=== PATIENT | female | born 2000 | race Caucasian/White ===

== ENCOUNTER 2023-09-19 19:41 | Observation (INO) | payer OTHER ==
--- NOTE | 2023-09-19 20:15 | ED ---
General Adult HPI - General Source: patient, family, RN notes reviewed Mode of arrival: ambulatory Limitations: no limitations <Michelle Ellsworth - Last Filed: 09/19/23 20:14> <Chris Swann - Last Filed: 09/20/23 01:28> - General Chief complaint: Neuro Symptoms/Deficit Stated complaint: Sent by Urgent Care Time Seen by Provider: 09/19/23 20:14 - History of Present Illness Initial comments: Quick note: 22-year-old female presented to the ER with a chief complaint of dizziness. She states and going on for approximately 1 week. She is seen by urgent care , 09-13-2023 and prescribed prednisone, meclizine and Zofran. She states since then dizziness has persisted. She describes her dizziness as a room spinning sensation. She denies any episodes of syncope. Denies any chest pain, shortness of breath. (Michelle Ellsworth) 22-year-old female presented to the ED with complaints of dizziness. States has been ongoing for the past week. Seen at urgent care and prescribed prednisone meclizine and Zofran. States initial relief of dizziness with meclizine however over the past few days she reports that she feels "off" and when she ambulates that she feels "wobbly". No fever or chills. No other complaints at this time. (hCris Swann) - Related Data Allergies Allergy/AdvReac Type Severity Reaction Status Date / Time amoxicillin Allergy Rash/Hives Verified 09/19/23 19:49 Review of Systems ROS Other: All systems not noted in ROS Statement are negative. <Michelle Ellsworth - Last Filed: 09/19/23 20:14> ROS Other: All systems not noted in ROS Statement are negative. <Chris Swann - Last Filed: 09/20/23 01:28> ROS Statement: Those systems with pertinent positive or pertinent negative responses have been documented in the HPI. Past Medical History Past Medical History: No Reported History History of Any Multi-Drug Resistant Organisms: None Reported Past Surgical History: No Surgical Hx Reported Past Psychological History: No Psychological Hx Reported Smoking Status: Never smoker Past Alcohol Use History: None Reported Past Drug Use History: None Reported <Michelle Ellsworth - Last Filed: 09/19/23 20:14> General Exam Limitations: no limitations <Michelle Ellsworth - Last Filed: 09/19/23 20:14> General appearance: alert, in no apparent distress Eye exam: Present: PERRL, EOMI Neck exam: Present: normal inspection Respiratory exam: Present: normal lung sounds bilaterally Cardiovascular Exam: Present: regular rate GI/Abdominal exam: Present: soft Extremities exam: Present: normal inspection Back exam: Present: normal inspection Neurological exam: Present: alert, oriented X3, CN II-XII intact (Rvymye-bi-qyxl, oktx-zo-[id number], rapid alternating movements intact.), abnormal gait, other (Rocking head [id number].) <Chris Swann - Last Filed: 09/20/23 01:28> - General Exam Comments Initial Comments: Visual Physical Exam Vital signs reviewed General: Well-appearing, nontoxic, no acute distress. Head: Normocephalic, atraumatic Eyes: PERRLA, EOMI ENT: Airway patent Chest: Nonlabored breathing Skin: No visual rash, normal skin tone Neuro: Alert and oriented 3 Musculoskeletal: No gross abnormalities (Michelle Ellsworth) Course Vital Signs 09/19/23 19:49 Temperature 98.5 F Pulse Rate 80 Respiratory 16 Rate Blood Pressure 164/92 O2 Sat by Pulse 98 Oximetry Medical Decision Making <Michelle Ellsworth - Last Filed: 09/19/23 20:14> - Lab Data Result diagrams: 09/19/23 21:00 09/19/23 21:00 <Chris Swann - Last Filed: 09/20/23 01:28> - Medical Decision Making I performed the quick note portion of this chart. Electronically signed by Michelle Ellsworth PA-C (Michelle Ellsworth) was pt. sent in by a medical professional or institution (MIKAEL Shultz, TIGER MACHINE OPERATOR, urgent care, hospital, or correction...) When possible be specific @ -No Did you speak to anyone other than the patient for history (EMS, parent, family, police, friend...)? What history was obtained from this source @ -No Did you review nursing and triage notes (agree or disagree)? Why? @ -I reviewed and agree with nursing and triage notes Were old charts reviewed (outside hosp., previous admission, EMS record, old EKG, old radiological studies, urgent care reports/EKG's, correction records)? Report findings @ -No old charts were reviewed Differential Diagnosis (chest pain, altered mental status, abdominal pain women, abdominal pain men, vaginal bleeding, weakness, fever, dyspnea, syncope, headache, dizziness, GI bleed, back pain, seizure, CVA, palpatations, mental health, musculoskeletal)? @ -Differential Altered Mental Status: Hypoglycemia, DKA, hypercapnia, ETOH, overdose, CO poisoning, trauma, myxedema coma, HTN encephalopathy, infection, encephalitis, psychosis, intercranial hemor rhage, hepatic encephalopathy, meningitis, CVA, this is not meant to be an all- inclusive list EKG interpreted by me (3pts min.). @ -EKG interpretation sinus rhythm [address]-T wave changes. X-rays interpreted by me (1pt min.). @ -None done CT interpreted by me (1pt min.). @ -CT brain and CT angio head and neck interpreted me which revealed no evidence of acute finding. U/S interpreted by me (1pt. min.). @ -None done What testing was considered but not performed or refused? (CT, X-rays, U/S, labs)? Why? @ -None What meds were considered but not given or refused? Why? @ -None Did you discuss the management of the patient with other professionals (professionals i.e. , PA, TIGER MACHINE OPERATOR, lab, RT, psych nurse, hospice social worker, fence maker, teacher, duty officer, outpatient case manager)? Give summary @ -Case discussed with Lucille, who accepts admission under [facility]. Was smoking cessation discussed for >3mins.? @ -No Was critical care preformed (if so, how long)? @ -No Were there social determinants of health that impacted care today? How? (Homelessness, low income, unemployed, alcoholism, drug addiction, transportation, low edu. Level, literacy, decrease access to med. care, nursing home, rehab)? @ -No Was there de-escalation of care discussed even if they declined (Discuss DNR or withdrawal of care, Hospice)? DNR status @ -No What co-morbidities impacted this encounter? (DM, HTN, Smoking, COPD, CAD, Canc er, CVA, ARF, Chemo, Hep., AIDS, mental health diagnosis, sleep apnea, morbid obesity)? @ -None Was patient admitted / discharged? Hospital course, mention meds given and route, prescriptions, significant lab abnormalities, going to OR and other pertinent info. @ -Admission 22-year-old female presenting to the ED with complaints of dizziness for the past week. Initially went to an urgent care and was provided prescriptions for steroids, meclizine, Zofran. Did note some improvement of dizziness with this however over the last 3 days and persistent feeling of being off balance with difficulties ambulating secondary to this. Also today notes onset of involuntary head movements. CT brain and CT angio head and neck were performed which revealed no evidence of acute finding. On examination patient is involuntarily rocking her head. Possible small amount of torsional nystagmus on cover/uncover test. Upon trying to ambulate the patient she has difficulties walking straight without assistance. Patient will be admitted to observation with consult to neurology. Undiagnosed new problem with uncertain prognosis? @ -No Drug Therapy requiring intensive monitoring for toxicity (Heparin, Nitro, Insulin, Cardizem)? @ -No Were any procedures done? @ -No Diagnosis/symptom? @ -Dizziness, unsteady gait Acute, or Chronic, or Acute on Chronic? @ -Acute Uncomplicated (without systemic symptoms) or Complicated (systemic symptoms)? @ -Complicated Side effects of treatment? @ -No Exacerbation, Progression, or Severe Exacerbation? @ -No Poses a threat to life or bodily function? How? (Chest pain, [place], [place], pneumonia, PE, COPD, DKA, ARF, appy, cholecystitis, CVA, Diverticulitis, Homicidal, Suicidal, threat to staff... and all critical care pts) @ -Unlikely at this time (Chris Swann) - Lab Data Lab Results 09/19/23 09/19/23 Range/Units 21:00 21:00 WBC 16.5 H (3.8-10.6) k/uL RBC 5.36 (3.80-5.40) m/uL Hgb 15.4 (11.4-16.0) gm/dL Hct 48.7 H (34.0-46.0) % MCV 90.8 (80.0-100.0) fL MCH 28.8 (25.0-35.0) pg MCHC 31.7 (31.0-37.0) g/dL RDW 12.9 (11.5-15.5) % Plt Count 446 (150-450) k/uL MPV 7.4 Neutrophils % 55 % Lymphocytes % 34 % Monocytes % 7 % Eosinophils % 1 % Basophils % 1 % Neutrophils # 9.1 H (1.3-7.7) k/uL Lymphocytes # 5.6 H (1.0-4.8) k/uL Monocytes # 1.1 H (0-1.0) k/uL Eosinophils # 0.2 (0-0.7) k/uL Basophils # 0.1 (0-0.2) k/uL Sodium 138 (137-145) mmol/L Potassium 4.3 (3.5-5.1) mmol/L Chloride 103 (98-107) mmol/L Carbon Dioxide 25 (22-30) mmol/L Anion Gap 10 mmol/L BUN 14 (7-17) mg/dL Creatinine 0.59 (0.52-1.04) mg/dL Est GFR (CKD-EPI)AfAm >90 (>60 ml/min/1.73 sqM) Est GFR (CKD-EPI)NonAf >90 (>60 ml/min/1.73 sqM) Glucose 83 (74-99) mg/dL Calcium 9.5 (8.4-10.2) mg/dL Total Bilirubin 0.7 (0.2-1.3) mg/dL AST 34 (14-36) U/L ALT 46 H (4-34) U/L Alkaline Phosphatase 80 (38-126) U/L Total Protein 8.6 H (6.3-8.2) g/dL Albumin 4.9 (3.5-5.0) g/dL Disposition <Michelle Ellsworth - Last Filed: 09/19/23 20:14> Time of Disposition: 00:30 <Chris Swann - Last Filed: 09/20/23 01:28> Clinical Impression: Dizziness Disposition: ADMITTED IP TO THIS [facility] Condition: Good Referrals: Mildred Hale MD [Primary Care Provider] - 1-2 days
[2023-09-19 21:19] LABS: Basophils # (A) 0.1 k/uL (0-0.2); Basophils % (A) 1 %; Eosinophils # (A) 0.2 k/uL (0-0.7); Eosinophils % (A) 1 %; HCT 48.7 % (34.0-46.0); HGB 15.4 gm/dL (11.4-16.0); Lymphocytes # (A) 5.6 k/uL (1.0-4.8); Lymphocytes % (A) 34 %; MCH 28.8 pg (25.0-35.0); MCHC 31.7 g/dL (31.0-37.0); MCV 90.8 fL (80.0-100.0); Mean Platelet Volume 7.4; Monocytes # (A) 1.1 k/uL (0-1.0); Monocytes % (A) 7 %; Neutrophils # (A) 9.1 k/uL (1.3-7.7); Neutrophils % (A) 55 %; Platelet Count 446 k/uL (150-450); RBC 5.36 m/uL (3.80-5.40); RDW 12.9 % (11.5-15.5); WBC 16.5 k/uL (3.8-10.6)
[2023-09-19 21:31] LABS: ALT 46 U/L (4-34); African American GFR (CKD) >90 (>60 ml/min/1.73 sqM); Anion Gap 10 mmol/L; Blood Urea Nitrogen 14 mg/dL (7-17); Calcium 9.5 mg/dL (8.4-10.2); Carbon Dioxide 25 mmol/L (22-30); Chloride 103 mmol/L (98-107); Glucose 83 mg/dL (74-99); Non-African American GFR(CKD) >90 (>60 ml/min/1.73 sqM); Sodium 138 mmol/L (137-145); Total Bilirubin 0.7 mg/dL (0.2-1.3)
[2023-09-19 21:48] LABS: AST 34 U/L (14-36); Albumin 4.9 g/dL (3.5-5.0); Alkaline Phosphatase 80 U/L (38-126); Potassium 4.3 mmol/L (3.5-5.1); Total Protein 8.6 g/dL (6.3-8.2)
--- NOTE | 2023-09-19 23:09 | CT ---
EXAM: CT Head Without Intravenous Contrast CLINICAL HISTORY: ITS.REASON CT Reason: dizziness, unsteady gait TECHNIQUE: Axial computed tomography images of the head/brain without intravenous contrast. CTDI is 15.6 mGy and DLP is 663.5 mGy-cm. This CT exam was performed using one or more of the following dose reduction techniques: automated exposure control, adjustment of the mA and/or kV according to patient size, and/or use of iterative reconstruction technique. COMPARISON: No relevant prior studies available. FINDINGS: Brain: Unremarkable. No hemorrhage. No significant white matter disease. No edema. Ventricles: No acute findings. No ventriculomegaly. Bones/joints: Unremarkable. No acute fracture. Soft tissues: Unremarkable. Sinuses: Unremarkable as visualized. No acute sinusitis. Mastoid air cells: Unremarkable as visualized. No mastoid effusion. IMPRESSION: Normal head/brain CT.
--- NOTE | 2023-09-19 23:13 | CT ---
EXAM: CT Angiography Head With Intravenous Contrast CLINICAL HISTORY: ITS.REASON CT Reason: dizziness, unsteady gait TECHNIQUE: Axial computed tomographic angiography images of the head with intravenous contrast. CTDI is 15.6 mGy and DLP is 663.5 mGy-cm. This CT exam was performed using one or more of the following dose reduction techniques: automated exposure control, adjustment of the mA and/or kV according to patient size, and/or use of iterative reconstruction technique. MIP reconstructed images were created and reviewed. COMPARISON: No relevant prior studies available. FINDINGS: Right internal carotid artery: No acute findings. Intracranial segment is patent with no significant stenosis. No aneurysm. Right anterior cerebral artery: No occlusion or significant stenosis. No aneurysm. Right middle cerebral artery: No occlusion or significant stenosis. No aneurysm. Right posterior cerebral artery: No occlusion or significant stenosis. No aneurysm. Right vertebral artery: Unremarkable as visualized. Left internal carotid artery: No acute findings. Intracranial segment is patent with no significant stenosis. No aneurysm. Left anterior cerebral artery: No occlusion or significant stenosis. No aneurysm. Left middle cerebral artery: No occlusion or significant stenosis. No aneurysm. Left posterior cerebral artery: No occlusion or significant stenosis. No aneurysm. Left vertebral artery: Unremarkable as visualized. Basilar artery: No occlusion or significant stenosis. No aneurysm. IMPRESSION: Normal head CTA. EXAM: CT Angiography Neck With Intravenous Contrast CLINICAL HISTORY: ITS.REASON CT Reason: dizziness, unsteady gait TECHNIQUE: Routine carotid CT angiography protocol was performed with intravenous contrast. NASCET criteria using the distal ICAs for comparison were used for evaluation of stenoses. CTDI is 48.8 mGy and DLP is 1128 mGy-cm. This CT exam was performed using one or more of the following dose reduction techniques: automated exposure control, adjustment of the mA and/or kV according to patient size, and/or use of iterative reconstruction technique. MIP reconstructed images were created and reviewed. COMPARISON: None. FINDINGS: VASCULATURE: Right common carotid artery: No significant stenosis. No dissection or occlusion. Right internal carotid artery: Extracranial segment is patent with no significant stenosis. No dissection or occlusion. Right external carotid artery: No occlusion. Right vertebral artery: No significant stenosis. No dissection or occlusion. Left common carotid artery: No significant stenosis. No dissection or occlusion. Left internal carotid artery: Extracranial segment is patent with no significant stenosis. No dissection or occlusion. Left external carotid artery: No occlusion. Left vertebral artery: No significant stenosis. No dissection or occlusion. NECK: Bones/joints: No acute findings. Soft tissues: Unremarkable. Lung apices: No acute disease. CAROTID STENOSIS REFERENCE USING NASCET CRITERIA: % ICA stenosis = (1 - narrowest ICA diameter/diameter of distal cervical ICA) x 100. Mild - <50% stenosis. Moderate - 50-69% stenosis. Severe - 70-94% stenosis. Near occlusion - 95-99% stenosis. Occluded - 100% stenosis. IMPRESSION: Negative CTA neck.
[2023-09-20] MEDS ORDERED: NALOXONE 0.4 MG/ML 1 ML VIAL IV PRN (01:28)
[2023-09-20] MEDS ORDERED: ACETAMINOPHEN TAB 325 MG TAB PO PRN (01:28)
[2023-09-20] MEDS ORDERED: ONDANSETRON 4 MG/2 ML VIAL IVP PRN (01:28)
[2023-09-20] MEDS: SODIUM CHLORIDE 0.9% 1,000 ML IV SCH (02:09)
[2023-09-20 08:08] VITALS: PULSE 78; RESP 16
[2023-09-20] MEDS ORDERED: MECLIZINE 25 MG TAB PO PRN (10:22)
--- NOTE | 2023-09-20 12:41 | P.HPIM ---
History of Present Illness H&P Date: 09/20/23 History of present illness; patient is a 22-year-old young lady who presented to ER because of complaint of dizziness. Patient states that she was all right 1 week back when she started noticing dizziness, dizziness was present at rest, patient describes it as a feeling of the room spinning around her. Patient has been also complaining of bobbing of her head for the last couple of days. Patient has been very unsteady on her gait. There is no current nausea or vomiting. Denies any blurred vision. There is no weakness of any extremity. Denies any slurred speech. Patient was seen at urgent care and was prescribed meclizine but the patient did not improve and dizziness persisted and she presented to the ER. Initial lab work done in the ER showed WBC 7.5, hemoglobin 15.4, platelet count 446, sodium 138, potassium 4.3, BUN 14, creatinine 0.59, AST 34, ALT 46, total protein 8.6 EKG done in the ER showed heart rate of 85, no ST segment elevation or depression seen, no T-wave inversions seen. CT head done showed no acute intracranial process CTA head and neck done showed no significant stenosis, aneurysm or thrombus in the intracranial circulation Patient admitted to internal medicine service REVIEW OF SYSTEMS: CONSTITUTIONAL: No fever, no malaise, no fatigue. HEENT: No recent visual problems or hearing problems. Denied any sore throat. CARDIOVASCULAR: No chest pain, orthopnea, PND, no palpitations, no syncope. PULMONARY: No shortness of breath, no cough, no hemoptysis. GASTROINTESTINAL: No diarrhea, no nausea, no vomiting, no abdominal pain. NEUROLOGICAL: As mentioned above HEMATOLOGICAL: Denies any bleeding or petechiae. GENITOURINARY: Denies any burning micturition, frequency, or urgency. MUSCULOSKELETAL/RHEUMATOLOGICAL: Denies any joint pain, swelling, or any muscle pain. ENDOCRINE: Denies any polyuria or polydipsia. The rest of the 14-point review of systems is negative. PHYSICAL EXAMINATION: GENERAL: The patient is alert and oriented x3, not in any acute distress. Well developed, well nourished. HEENT: Pupils are round and equally reacting to light. EOMI. No scleral icterus. No conjunctival pallor. Normocephalic, atraumatic. No pharyngeal erythema. No thyromegaly. CARDIOVASCULAR: S1 and S2 present. No murmurs, rubs, or gallops. PULMONARY: Chest is clear to auscultation, no wheezing or crackles. ABDOMEN: Soft, nontender, nondistended, normoactive bowel sounds. No palpable organomegaly. MUSCULOSKELETAL: No joint swelling or deformity. EXTREMITIES: No cyanosis, clubbing, or pedal edema. NEUROLOGICAL: Gross neurological examination did not reveal any focal deficits. SKIN: No rashes. Assessment and plan Dizziness BPV Monitor vital signs Monitor CBC Monitor CMP Continue telemetry monitoring Start Antivert Ordered 2D echo Ordered MRI brain Continue symptomatic treatment consult neurology Labs and medication were reviewed.. Continue same treatment. Continue with symptomatic treatment. Resume home medication. Monitor labs and vitals. DVT and GI prophylaxis. Further recommendations as per clinical course of the zuleyma ent Dictation was produced using [employer] dictation software. please excuse any grammatical, word or spelling errors. Past Medical History Past Medical History: No Reported History History of Any Multi-Drug Resistant Organisms: None Reported Past Surgical History: No Surgical Hx Reported Past Psychological History: No Psychological Hx Reported Smoking Status: Never smoker Past Alcohol Use History: None Reported Past Drug Use History: None Reported - Past Family History Father Family Medical History: AFIB Mother Additional Family Medical History / Comment(s): IBS Medications and Allergies Home Medications Medication Instructions Recorded Confirmed Type No Known Home Medications 09/20/23 09/20/23 History Allergies Allergy/AdvReac Type Severity Reaction Status Date / Time amoxicillin Allergy Rash/Hives Verified 09/20/23 07:45 Physical Exam Vitals: Vital Signs Temp Pulse Pulse Resp BP BP Pulse Ox 09/20/23 08:07 98.1 F 78 16 136/89 99 09/20/23 06:00 75 18 111/67 97 09/20/23 01:35 96 18 123/87 98 09/19/23 19:49 98.5 F 80 16 164/92 98 Intake and Output 09/19/23 09/20/23 09/20/23 22:59 06:59 14:59 Intake Total 118 Balance 118 Intake: Oral 118 Other: Weight 99.79 kg Results CBC & Chem 7: 09/19/23 21:00 09/19/23 21:00 Labs: Abnormal Lab Results - Last 24 Hours (Table) 09/19/23 09/19/23 Range/Units 21:00 21:00 WBC 16.5 H (3.8-10.6) k/uL Hct 48.7 H (34.0-46.0) % Neutrophils # 9.1 H (1.3-7.7) k/uL Lymphocytes # 5.6 H (1.0-4.8) k/uL Monocytes # 1.1 H (0-1.0) k/uL ALT 46 H (4-34) U/L Total Protein 8.6 H (6.3-8.2) g/dL
--- NOTE | 2023-09-20 13:19 | CA ---
Transthoracic Echo Report Name: Sara Garza Age: 22 Gender: F : 2000 Exam Date: 09/20/2023 11:14 Exam Location: [facility] Ht (in): 63 Wt (lb): 220 Ordering Physician: Bradley Basilio MD Attending/Referring Phys: Apprentice Jockey Noa Nichols RDCS Procedure CPT: Indications: dizziness Cardiac Hx: Technical Quality: Fair Contrast 1: Total Dose (mL): Contrast 2: Total Dose (mL): MEASUREMENTS (Male / Female) Normal Values 2D ECHO LV Diastolic Diameter PLAX 3.7 cm 4.2 - 5.9 / 3.9 - 5.3 cm LV Systolic Diameter PLAX 2.3 cm IVS Diastolic Thickness 1.2 cm 0.6 - 1.0 / 0.6 - 0.9 cm LVPW Diastolic Thickness 1.2 cm 0.6 - 1.0 / 0.6 - 0.9 cm LV Relative Wall Thickness 0.7 RV Internal Dim ED PLAX 3.1 cm LA Volume 40.6 cm??? 18 - 58 / 22 - 52 cm??? LA Volume Index 18.8 cm???/m??? 16 - 28 cm???/m??? M-MODE Aortic Root Diameter MM 2.3 cm LA Systolic Diameter MM 3.5 cm LA Ao Ratio MM 1.5 AV Cusp Separation MM 1.9 cm DOPPLER AV Peak Velocity 123.6 cm/s AV Peak Gradient 6.1 mmHg AV Mean Velocity 89.5 cm/s AV Mean Gradient 3.5 mmHg AV Velocity Time Integral 24.5 cm LVOT Peak Velocity 89.4 cm/s LVOT Peak Gradient 3.2 mmHg LVOT Velocity Time Integral 18.7 cm MV Area PHT 6.1 cm??? Mitral E Point Velocity 59.1 cm/s Mitral A Point Velocity 58.3 cm/s Mitral E to A Ratio 1.0 MV Deceleration Time 124.0 ms MV E' Velocity 8.0 cm/s Mitral E to MV E' Ratio 7.4 FINDINGS Left Ventricle Left ventricular cavity size normal. Borderline left ventricular hypertrophy. Normal left ventricular systolic function with no obvious regional wall motion abnormalities. Normal left ventricular diastolic filling pattern. Left ventricular ejection fraction is estimated at 55-60 %. Right Ventricle Normal right ventricular size and function. Right ventricular systolic pressure within normal limits. Right Atrium Normal right atrial size. Left Atrium Normal left atrial size. Mitral Valve Structurally normal mitral valve. No mitral stenosis, regurgitation or prolapse. Aortic Valve Trileaflet aortic valve. No aortic valve stenosis or regurgitation. Tricuspid Valve Structurally normal tricuspid valve. Trace to mild tricuspid regurgitation. Pulmonic Valve Structurally normal pulmonic valve. Pericardium No pericardial effusion. Aorta Normal size aortic root and proximal ascending aorta. CONCLUSIONS Normal biventricular dimension and systolic function Poorly visualized intracardiac valves Previewed by: Dr. Monico Bazan MD (Electronically Signed) Final Date: 20 September 2023 13:18
[2023-09-20 13:26] LABS: Amphetamine Screen,Urine Not Detected (NotDetected); Barbiturate Screen,Urine Not Detected (NotDetected); Benzodiazepines Screen,Urine Not Detected (NotDetected); Cocaine Screen,Urine Not Detected (NotDetected); Methadone Screen, Urine Not Detected (NotDetected); Opiate Screen,Urine Not Detected (NotDetected); Oxycodone Screen, Urine Not Detected (NotDetected); Phencyclidine Screen,Urine Not Detected (NotDetected); Tricyclic Antidepressant,Urine Not Detected (NotDetected); Urn Cannabinoid Scrn Not Detected (NotDetected)
[2023-09-20 14:47] VITALS: BP 113/81; TEMP 98
--- NOTE | 2023-09-20 17:03 | P.CNNES ---
History of Present Illness Consult date: 09/20/23 Requesting physician: Chris Swann Reason for Consult: dizziness and difficulty ambulating History of Present Illness: This is a 22-year-old young woman who presented emergency department because of unsteady gait dizzy and head bobbing. Patient stated that last Sunday she was feeling dizzy and she felt like the room spinning and the dizziness only happened predominantly with movement. She denied any nausea any vomiting denied any focal weakness numbness visual disturbance. She went to an urgent care and she was told that she had fluid in her ears and it was mostly the left ear that she was notified about. She was prescribed meclizine and prednisone tapering. She was on prednisone a total of 6 days in which she felt better. By Sunday her symptoms has resolved. Then on Sunday she felt she was unsteady walking she had pain in the right calf she was having head bobbing and symptom were not improving so she presented to the hospital. She denies any recent fever or sick contacts. Denies any rash. She denies any similar episodes like this in the past. She states she has significant ear issues in which she has wax that really built up in her ears and she has removed since here ears are muffled or she has ear infection. Denies any history of strokes or seizure. With those symptoms described above she denies any loss of consciousness, urinary or bowel incontinence or tongue bite. She denies any tobacco use or any illicit drug use. She rarely drinks any alcohol. Some of the workup during this hospital visit consisted of: Patient is afebrile. White blood cell is 16.5 thousand Chemistry panel is ALT is 46 total protein is 8.6 otherwise unremarkable. Vitamin B12 is 631 CT of the head is reported as normal head CT brain. I personally reviewed the CT and agree with the report. CTA head and neck: Is reported as unremarkable. Review of Systems The positive and negative as per HPI. Past Medical History Past Medical History: No Reported History History of Any Multi-Drug Resistant Organisms: None Reported Past Surgical History: No Surgical Hx Reported Past Psychological History: No Psychological Hx Reported Smoking Status: Never smoker Past Alcohol Use History: None Reported Past Drug Use History: None Reported - Past Family History Father Family Medical History: AFIB Mother Additional Family Medical History / Comment(s): IBS Medications and Allergies Home Medications Medication Instructions Recorded Confirmed Type No Known Home Medications 09/20/23 09/20/23 History Allergies Allergy/AdvReac Type Severity Reaction Status Date / Time amoxicillin Allergy Rash/Hives Verified 09/20/23 07:45 Physical Examination - Vital Signs Vital Signs: Vital Signs Temp Pulse Pulse Resp BP BP Pulse Ox 09/20/23 14:46 98 F 78 16 113/81 98 09/20/23 08:07 98.1 F 78 16 136/89 99 09/20/23 06:00 75 18 111/67 97 09/20/23 01:35 96 18 123/87 98 09/19/23 19:49 98.5 F 80 16 164/92 98 Intake and Output 09/20/23 09/20/23 09/20/23 06:59 14:59 22:59 Intake Total 118 Balance 118 Intake: Oral 118 Other: # Voids 3 Weight 99.79 kg GENERAL: The patient is lying in bed and is not in acute distress. NEUROLOGICAL: Higher mental function: The patient is awake, alert, oriented to self, place and time. Patient is following commands. No aphasia and no neglect. Cranial nerves: The pupils are round, equal and reactive to light and accommodation. Visual toure are full to confrontation throughout. Extraocular movement is intact no nystagmus is noted. Facial sensation is normal to touch throughout. The facial strength is normal throughout. Has head tremor at rest but when she is performing a task or verbalizing it subsides. Hearing is normal bilaterally to hand rub. Tongue is midline and moved [id number] without any difficulty. No dysarthria is noted. Shoulder shrug is normal bilaterally. Motor: Gait is somewhat unsteady making turns but otherwise able to walk without any issuess. The strength is 5 over 5 throughout. Normal tone and bulk. Cerebellum: Normal finger to nose heel to [place] bilaterally. Sensation: Sensation is normal to touch throughout. Reflexes (right/left): 2+ throughout but at ankle she was resisting on testing it. Plantars are downgoing bilaterally. Results - Laboratory Findings CBC and BMP: 09/19/23 21:00 09/19/23 21:00 Abnormal Lab Findings: Abnormal Labs 09/19/23 09/19/23 09/19/23 21:00 21:00 21:00 WBC 16.5 H Hct 48.7 H Neutrophils # 9.1 H Lymphocytes # 5.6 H Monocytes # 1.1 H ALT 46 H Total Protein 8.6 H TSH 22.500 H Assessment and Plan Assessment: This is a 22-year-old young woman who started having dizziness last Sunday and was mostly with action and she described as the room spinning and she was evaluated by urgent care and and was told she had fluid in her left ear. She was given prednisone tapering dose for 6 days as well as meclizine and her symptoms resolved by Sunday. Then Sunday she started feeling unsteady walking with head bobbing and felt that her right calf was in pain. Denies any recent fever infection or similar episodes in the past. Head tremor with unsteady gait seems Titubations. It seems it resolves and not as prominent when she is performing a task or distracted. Unsure exact etiology. CT head and CTA head and neck is unremarkable. History of ear infections and cerumen impaction in past Plan: I ordered MRI of the brain and cervical spine with and without stat I ordered a routine EEG but I do not feel this is a seizure Ordered MELISSA, TSH, [id number] DNA, ESR Ordered urine drug screen and urine and this was notified to the patient. Consulted PT and OT Consulted Dr. Brito (for ear issues). The rest of the medical management the primary and other specialist The plan is discussed with patient, her nurse and primary team. Thank you for the consultation. Time with Patient: Greater than 30
[2023-09-20 20:31] LABS: Anti-DNA, DS unit <1.0 IU/mL; DNA Double-Stranded Negative (Negative)
[2023-09-20 20:45] LABS: Urine Alcohol Negative (Negative); Urine Barbiturate Negative (Negative); Urine Cocaine Negative (Negative); Urine Methadone Negative (Negative); Urine Opiates Negative (Negative); Urine Phencyclidine Negative (Negative)
--- NOTE | 2023-09-20 20:52 | EEG ---
ELECTROENCEPHALOGRAM REPORT CLINICAL HISTORY: This is a 22-year-old young woman with hand tremor. The video EEG is obtained to evaluate for seizure epileptiform activity. RELEVANT MEDICATION: The patient is not on any antiepileptic drugs. EEG TYPE: This is a routine 21-channel EEG with video using the 10/20 electrode placement system. DESCRIPTION: Wakefulness is only obtained. During awake state, the posterior-dominant rhythm consists of [id number] voltage of 10 to 11 hertz activity that is well modulated and well sustained. There is no physiological stage 2 sleep architecture. There is no focal slowing. Interictal and ictal is none. ACTIVATION PROCEDURE: Photic stimulation did not evoke a posterior driving response. There is no abnormality during the photic stimulation. Hyperventilation is not performed. CLINICAL INTERPRETATION: This is a normal routine EEG. There is no focal slowing, epileptiform discharge, or seizure on the EEG. A normal routine EEG does not rule out underlying epilepsy. Clinical correlation is recommended. CAMILA / BASSAM: [id number] /
--- NOTE | 2023-09-21 12:59 | P.DS ---
Providers Date of admission: 09/20/23 03:28 Expected date of discharge: 09/20/23 Attending physician: Jack Win Consults: 09/20/23 01:28 Consult Physician Urgent Consulting Provider: Yared Johnson Consult Reason/Comments: Dizzines, difficulty ambulating Do you want consulting provider notified?: Yes 09/20/23 12:01 Consult Physician Routine Consulting Provider: Salomón Brito Consult Reason/Comments: dizziness/vertigo Do you want consulting provider notified?: Yes Primary care physician: [facility] Course: Discharge diagnoses; Dizziness BPV Hospital course; patient is a 22-year-old young lady who presented to ER because of complaint of dizziness. Patient states that she was all right 1 week back when she started noticing dizziness, dizziness was present at rest, patient describes it as a feeling of the room spinning around her. Patient has been also complaining of bobbing of her head for the last couple of days. Patient has been very unsteady on her gait. There is no current nausea or vomiting. Denies any blurred vision. There is no weakness of any extremity. Denies any slurred speech. Patient was seen at urgent care and was prescribed meclizine but the patient did not improve and dizziness persisted and she presented to the ER. Initial lab work done in the ER showed WBC 7.5, hemoglobin 15.4, platelet count 446, sodium 138, potassium 4.3, BUN 14, creatinine 0.59, AST 34, ALT 46, total protein 8.6 EKG done in the ER showed heart rate of 85, no ST segment elevation or depression seen, no T-wave inversions seen. CT head done showed no acute intracranial process CTA head and neck done showed no significant stenosis, aneurysm or thrombus in the intracranial circulation Patient admitted to internal medicine service. Patient was evaluated neurology and they ordered MRI and EEG. Patient was out of network and the insurance did not cover imaging so patient was transferred to [facility]. PHYSICAL EXAMINATION: GENERAL: The patient is alert and oriented x3, not in any acute distress. Well developed, well nourished. HEENT: Pupils are round and equally reacting to light. EOMI. No scleral icterus. No conjunctival pallor. Normocephalic, atraumatic. No pharyngeal erythema. No thyromegaly. CARDIOVASCULAR: S1 and S2 present. No murmurs, rubs, or gallops. PULMONARY: Chest is clear to auscultation, no wheezing or crackles. ABDOMEN: Soft, nontender, nondistended, normoactive bowel sounds. No palpable organomegaly. MUSCULOSKELETAL: No joint swelling or deformity. EXTREMITIES: No cyanosis, clubbing, or pedal edema. NEUROLOGICAL: Gross neurological examination did not reveal any focal deficits. SKIN: No rashes. Dictation was produced using [employer] dictation software. please excuse any grammatical, word or spelling errors. Patient Condition at Discharge: Good Plan - Discharge Summary Discharge Rx Participant: Yes New Discharge Prescriptions: No Action No Known Home Medications Discharge Medication List No Known Home Medications 09/20/23 [History] Follow up Appointment(s)/Referral(s): iMldred Hale MD [Primary Care Provider] - 1-2 days Activity/Diet/Wound Care/Special Instructions: Patient to be transferred to [facility] for MRI as patient's insurance is out of network. Patient has been accepted by Dr. Hart and currently awaiting a bed Discharge Disposition: TRANSFER TO SHORT [facility]
== END 2023-09-20 18:26 | disposition short-term general hospital (02) ==
LOC: EC 19:41 → 6NMEDSUR 09-20 03:28
PROVIDERS: ADMIT Internal Medicine; ATTEND Internal Medicine
DX: H81.10 Benign paroxysmal vertigo, unspecified ear (principal); M79.661 Pain in right lower leg; Z88.0 Allergy status to penicillin; Z82.49 Family history of ischemic heart disease and other diseases of the circulatory system
CPT/HCPCS: 36415; 70450; 70496; 70498; 80053; 80306; 81025; 82607; 84439; 84443; 85025; 85652; 86038; 86225; 93005; 93306; 95816; 99285